=== PATIENT | female | born 1945 | race Hispanic/Latino ===

== ENCOUNTER 2020-08-22 06:34 | Day surgery (SDC) | payer MEDICARE ==
[2020-08-22] MEDS ORDERED: SODIUM CHLORIDE 0.9% 500 ML 500 ML IV SCH (07:00)
[2020-08-22 07:20] LABS: Basophils # (Auto) 0.1 K/mm3 (0.0-0.1); Basophils % (Auto) 0.8 % (0.0-1.8); Eosinophils % (Auto) 0.1 % (0.0-4.3); Hematocrit 39.8 % (30.3-42.9); Hemoglobin 13.4 gm/dl (10.1-14.3); Lymphocytes # (Auto) 3.4 K/mm3 (1.2-5.4); Lymphocytes % (Auto) 46.7 % (13.4-35.0); Mean Corpuscular HGB Conc 34 % (30-34); Mean Corpuscular Volume 84 fl (79-97); Monocytes # (Auto) 0.8 K/mm3 (0.0-0.8); Monocytes % (Auto) 10.5 % (0.0-7.3); Platelet Count 178 K/mm3 (140-440); Red Blood Count 4.73 M/mm3 (3.65-5.03); Red Cell Distribution Width 14.6 % (13.2-15.2)
[2020-08-22 07:30] LABS: INR 0.96 (0.87-1.13)
[2020-08-22 07:31] LABS: Partial Thromboplastin Time 27.1 Sec. (24.2-36.6)
[2020-08-22 07:33] LABS: Blood Urea Nitrogen 15 mg/dL (7-17); Calcium 9.3 mg/dL (8.4-10.2); Hemolysis Index 6
[2020-08-22 07:39] LABS: BUN/Creatinine Ratio 25
[2020-08-22] MEDS ORDERED: HEPARIN/NS 5000 UNIT/500ML 1,000 ML IR ONE (08:16)
[2020-08-22] MEDS ORDERED: NITROGLYCERIN SYRINGE 3 ML ONE (08:18)
[2020-08-22] MEDS: MIDAZOLAM 2 MG/2 ML INJ ONE ×2 (08:58→09:16)
[2020-08-22] MEDS: fentaNYL 100 MCG/2 ML INJ ONE ×2 (08:58→09:16)
[2020-08-22] MEDS: LIDOCAINE (2%) 20 MG/1 ML VIAL 20 ML MDV INFILTRATI ONE ×2 (08:59→09:28)
[2020-08-22] MEDS: HEPARIN 10,000 UNITS/10 ML VIAL ONE ×2 (08:59→09:29)
[2020-08-22] MEDS ORDERED: NITROGLYCERIN 600 MCG/3 ML SYRINGE ART-SHEATH ONE ×2 (09:00→09:29)
[2020-08-22] MEDS: VERAPAMIL 5 MG/2 ML INJ ONE ×2 (09:16→09:29)
[2020-08-22] MEDS ORDERED: HYDROcodone/ACETAMINOPHEN 5-325 MG TAB PO PRN (10:00)
--- NOTE | 2020-08-22 10:00 | Short Stay Summary ---
Short Stay Documentation Date of service: 08/22/20 - History H&P: obtained from office - Allergies and Medications Current Medications: Allergies clopidogrel bisulfate [From Plavix] Allergy (Verified 12/11/14 09:17) Rash streptomycin Allergy (Verified 12/11/14 09:18) Itching Home Medications Medication Instructions Recorded Confirmed Last Taken Type AtorvaSTATin [Lipitor] 40 mg PO HS 12/11/14 08/22/20 08/21/20 History 40 mg Celecoxib [celeBREX] 200 mg PO BID 12/11/14 08/22/20 08/21/20 History 200 mg Effexor XR 150 mg PO DAILY 12/11/14 08/22/20 08/21/20 History 150 mg amLODIPine 5 mg PO DAILY 12/11/14 08/22/20 08/21/20 History 5 mg sulfaSALAzine 500 mg PO HS 12/11/14 08/22/20 08/21/20 History 500 mg ISOSORBIDE MONOnitrate [Imdur ER] 30 mg PO DAILY #30 tab.er.24h 12/12/1408/2208/21/20 Rx 30 mg Prasugrel [Effient] 10 mg PO QDAY #30 tablet 12/12/14 08/22/20 08/22/20 07:42 Rx 10 mg Dulaglutide [Trulicity] 0.5 ml SQ QWEEK 08/22/20 08/22/20 08/21/20 History 0.5ml Insulin Detemir (Nf) [Levemir 54 units SQ HS 08/22/20 08/22/20 08/21/20 History Flextouch (Nf)] 54 units Active Medications Sodium Chloride (Nacl 0.9% 500 Ml) 500 mls @ 50 mls/hr IV DIRECT ANANDA Stop: 08/22/20 16:59 Last Admin: 08/22/20 08:24 Dose: 50 mls/hr Documented by: - Brief post op/procedure progress note Date of procedure: 08/22/20 Pre-op diagnosis: sob Post-op diagnosis: same Procedure: see report Anesthesia: local Estimated blood loss: none Pathology: none - Disposition Condition at discharge: Good Disposition: DC-01 TO HOME OR SELFCARE - Discharge Diagnoses (1) SOBOE (shortness of breath on exertion) Status: Chronic (2) S/P PTCA (percutaneous transluminal coronary angioplasty) Status: Chronic (3) CAD (coronary artery disease) Status: Chronic Qualifiers: Coronary Disease-Associated Artery/Lesion type: [place] artery Associated angina: with unstable angina (4) HTN (hypertension) Status: Chronic Qualifiers: Hypertension type: essential hypertension Qualified Code(s): I10 - Essential (primary) hypertension (5) Hyperlipidemia Status: Chronic Qualifiers: Hyperlipidemia type: moderate mixed hyperlipidemia not requiring statin therapy Qualified Code(s): E78.2 - Mixed hyperlipidemia Short Stay Discharge Plan Activity: advance as tolerated Diet: low fat, low cholesterol, low salt Wound: keep clean and dry Follow up with: PRIMARY CARE, [Primary Care Provider] - 7 Days
[2020-08-22] MEDS ORDERED: traMADol 50 MG TAB PO PRN (10:30)
[2020-08-22] MEDS ORDERED: RANOLAZINE ER 500 MG TAB 12HR PO SCH (10:30)
--- NOTE | 2020-08-22 11:33 | Electrocardiograph Report ---
[facility] Test Date: 2020-08-22 Test Time: 07:55:40 Pat Name: GUERDA CARR Department: Room: Gender: F Staff Nurse Midwife: monica : 1945 Requested By: ZARIA URIBE Order Number: [id number] Reading MD: Zaria Uribe Measurements Intervals Clint Rate: 50 P: 57 VA: 189 QRS: 56 QRSD: 95 T: 79 QT: 431 QTc: 395 Interpretive Statements Sinus rhythm No previous ECG available for comparison Electronically Signed On 08-22-2020 11:33:40 EDT by Zaria Uribe
[2020-08-22 13:30] VITALS: BP 151/55
--- NOTE | 2020-08-22 13:45 | Cardiac Catherization Report ---
LEFT HEART CATHETERIZATION CLINICAL INFORMATION: This is a 75-year-old female with hypertension, hyperlipidemia with known coronary artery disease with drug-eluting stents placed in 2015 in RCA and LAD stent before that, presents with exertional shortness of breath with minimal exertion with abnormal stress test with ischemia in the inferior and inferior apical regions with normal LV function. Procedure was done with moderate sedation started at 9:16, finished at 9:43 that is 25 minutes of moderate sedation. Procedure was done via the right radial artery, sterile technique, local anesthesia, 6-[place] radial sheath inserted. Left system engaged with a JL3.5 catheter. Left main is large and patent, bifurcates into a medium caliber LAD, is patent from proximally, mid stent is patent and after stented area is 100%. I do not see left to left collaterals feeding into the distal LAD. Diagonal 1 and diagonal 2 are small caliber and patent. Circumflex is a large caliber vessel, patent, goes into a large OM1 that is patent with upper and lower branch are large caliber and patent and paimiut circumflex is a medium caliber and patent. I see left to right collaterals feeding to a small PDA. RCA engaged with JR4 catheter. Stents from proximal and mid, the proximal stent patent and mid becomes 100%, do not see right to right collaterals. LV gram done in KAZAKH and LAMA view, shows normal LV function, EF 55-60%, LVEDP 27 mmHg, LV is 149 mmHg. Aortic is 143/61. No gradient across the aortic valve on pullback. 5-[place] catheters all taken over guidewire, 6-[place] radial sheath was discontinued. Radial band applied. No hematoma, no bleeding. SUMMARY: Left main patent, LAD proximal patent and mid stent patent but right after is 100% with chronic total occlusion. Very faint collaterals feeding into the distal LAD, small vessel. Diagonal 1, diagonal 2 small caliber and patent. Circumflex is a large caliber vessel and patent. OM1 is a large caliber vessel patent. Upper and lower branch patent. Distal circumflex patent with left to right collaterals feeding into a small PDA. RCA mid is 100% in-stent restenosis,not amenable for bypass surgery. The patient will be referred to [facility] of the RCA and [facility] of the LAD up at [place]. Discussed in detail with the patient and the patient's family. [facility]# [id number] DB/MYRANDA CABRERA
== END 2020-08-22 13:25 | disposition home or self-care (01) ==
LOC: CATHLABREC 06:34
PROVIDERS: ATTEND Internal Medicine
DX: R06.02 Shortness of breath (principal); R94.39 Abnormal result of other cardiovascular function study; I25.10 Atherosclerotic heart disease of native coronary artery without angina pectoris; E78.5 Hyperlipidemia, unspecified; M19.90 Unspecified osteoarthritis, unspecified site; Z79.899 Other long term (current) drug therapy; Z79.4 Long term (current) use of insulin; Z98.61 Coronary angioplasty status; Z98.890 Other specified postprocedural states; Z82.61 Family history of arthritis; Z84.1 Family history of disorders of kidney and ureter; Z82.49 Family history of ischemic heart disease and other diseases of the circulatory system
CPT/HCPCS: 36415; 80048; 85025; 85610; 85730; 93005; 93458; 99156; 99157; C1894; J1644; J2250; J3010; J7040; Q9967